=== PATIENT | male | born 1935 | race Hispanic/Latino ===

== ENCOUNTER 2016-11-24 15:46 | Emergency (ER) | payer MEDICARE, OTHER ==
[2016-11-24] MEDS ORDERED: Absorbable Gelatin Sponge Size 12-7 ONE ×2 (16:01→16:19)
[2016-11-24] MEDS ORDERED: Lidocaine 2% w Epi 1:100,000 Inj IJ ONE (16:23)
--- NOTE | 2016-11-24 17:22 | ED PDOC ---
HPI: Dental Pain/Injury Time Seen by Provider: 11/24/16 16:02 Chief Complaint (Nursing): Dental Pain Chief Complaint (Provider): Bleeding s/p Tooth Extraction History Per: Patient, Family (son) History/Exam Limitations: no limitations Onset/Duration Of Symptoms: Hrs (extracted earlier today) Current Symptoms Are (Timing): Still Present Severity: Moderate Additional Complaint(s): Tres Bello is an 81 year old male, with a past medical history inclusive of a "mitral valve problem" (compliant w/baby aspirin QD), who presents to the ED on 11/24/16, accompanied by his son, for the evaluation of moderate bleeding from the site of a tooth extraction (#19) that was performed earlier today by Dr. Rodríguez ([phone]; [place], [place]). Patient states that, though he had not experienced much bleeding immediately post procedure, it had started to bleed profusely after he had changed the overlaying gauze as per the directions of his dentist. Denies dizziness/lightheadedness or bleeding from elsewhere on body. Antibiotics have already been prescribed by dentist. PMD: none provided Past Medical History Reviewed: Historical Data, Nursing Documentation, Vital Signs Vital Signs: Last Vital Signs Temp 98.0 F 11/24/16 15:51 Pulse 84 11/24/16 15:51 Resp 20 11/24/16 15:51 BP 188/106 H 11/24/16 15:51 Pulse Ox 96 11/24/16 15:51 - Medical History PMH: Anxiety, Sleep Apnea Denies: Chronic Kidney Disease - Surgical History Surgical History: Endoscopy Other surgeries: colonoscopy - Family History Family History: States: Unknown Family Hx - Living Arrangements Living Arrangements: With Family - Social History Current smoker - smoking cessation education provided: No Alcohol: None Drugs: Denies - Home Medications Home Medications: Ambulatory Orders Medication Instructions Recorded Esomeprazole Magnesium [Nexium] 20 mg PO DAILY 09/13/16 - Allergies Allergies/Adverse Reactions: Allergies Allergy/AdvReac Type Severity Reaction Status Date / Time No Known Allergies Allergy Verified 11/24/16 15:51 Review of Systems ROS Statement: Except As Marked, All Systems Reviewed And Found Negative ENT: Positive for: Other (bleeding from site of recent tooth extraction) Cardiovascular: Negative for: Light Headedness Neurological: Negative for: Dizziness Physical Exam - Reviewed Nursing Documentation Reviewed: Yes Vital Signs Reviewed: Yes - Physical Exam Appears: Positive for: Non-toxic, No Acute Distress Head Exam: Positive for: ATRAUMATIC, NORMOCEPHALIC Skin: Positive for: Normal Color, Warm, Dry Eye Exam: Positive for: Normal appearance, PERRL ENT: Positive for: Other (empty socket noted at location of tooth #19 w/notable active bleeding) Neurologic/Psych: Positive for: Alert, Oriented (x3). Negative for: Motor/ Sensory Deficits - ECG O2 Sat by Pulse Oximetry: 96 (RA) Pulse Ox Interpretation: Normal - Critical Care Total Time (In Min): 45 Medical Decision Making Medical Decision Makin:02 Initial Impression: bleeding from site of tooth extraction Attempted to control bleeding with direct pressure and application of gelfoam dressing, unsuccessful. Will call patient's dentist for consultation. 16:12 Discussed case w/Dr. Rodríguez (DMD), who recommended OMFS consult. As this facility does not have OMFS staff automation control integrator, asked by this provider if patient could be sent back to their dental office for further treatment once bleeding was controlled. However, Dr. Rodríguez has expressed that he would rather the patient be treated within the ED secondary to risk of possible uncontrolled bleeding. 16:31 Discussed case w/Dr. Navarro (DMD, partner of Dr. Rodríguez), who has given the [place] [place]; ([phone]). Will call for further recommendations. 16:38 [place] [place] recommends local infiltration of 5cc Lidocaine 1% w/Epi laterally into extraction site and that at least one 3-0 plain gut/nonabsorbable suture be used to close wound site. Procedure performed by this MD provider, see procedure note for additional details. Patient tolerated procedure well with no immediate complications. Will observe for breakthrough bleeding. 17:45 Discussed case w/Dr. Navarro ([facility]), who has been updated as to patient's condition and recommendations of Dr. Nagy. 18:38 Upon provider reevaluation bleeding appears to be controlled. Patient's son has asked multiple times that patient be discharged home. Counseling provided regarding diagnosis and further wound care instructions, with patient being advised to follow up with his DMD tomorrow without fail. Also advised to take previously prescribed antibiotics as directed. There is agreement to discharge plan, return for acute worsening of symptoms. Scribe Attestation: Documented by Esther Broderick, acting as a scribe for Fariba Rhodes MD. Provider Scribe Attestation: All medical record entries made by the Scribe were at my direction and personally dictated by me. I have reviewed the chart and agree that the record accurately reflects my personal performance of the history, physical exam, medical decision making, and the department course for this patient. I have also personally directed, reviewed, and agree with the discharge instructions and disposition. Procedures - Time-Out Type of Procedure: Suture placement w/in site of tooth extraction Site of Procedure: Socket #19 Correct Patient (with visual ID + MR# on ID Band): Yes Correct Procedure: Yes Correct Site Marked: Yes Physician Name: Fariba Rhodes MD - Laceration/Wound Repair Socket #19 Wound Explored: clean Anesthesia: Lidocaine w/ Epi (local infiltration lateral to empty socket) Volume Anesthetic (ccs): 5 Wound Repaired With: Sutures Suture Size/Type: 4:0 (plain gut, x1), 3:0 (plain gut, x3) Wound Complexity: Intermediate Sterile Dressing Applied?: Yes Progress: Gelfoam dressing applied over socket s/p suture placement, topped with multiple layers of sterile gauze. Patient instructed to apply direct pressure by biting down with maxillary teeth. Patient tolerated procedure well with no immediate complications. Disposition - Clinical Impression Clinical Impression: Gingiva hemorrhage - Patient ED Disposition Is Patient to be Admitted: No Counseled Patient/Family Regarding: Diagnosis, Need For Followup - Disposition Disposition: Routine/Home Disposition Time: 18:38 Condition: STABLE Additional Instructions: FOLLOW-UP WITH DR. RODRÍGUEZ/LIZY TOMORROW FOR REEVALUATION WITHOUT FAIL. Instructions: Tooth Extraction (ED)
[2016-11-24 18:10] VITALS: BP 129/83; PULSE 78; RESP 19; TEMP 98
[2016-11-24] MEDS ORDERED: Lidocaine 2% w Epi 1:100,000 Inj IJ STA (18:12)
[2016-11-24 18:16] VITALS: O2SAT 96
== END 2016-11-24 18:46 | disposition home or self-care (01) ==
LOC: H.ER 15:46
DX: K06.8 Other specified disorders of gingiva and edentulous alveolar ridge (principal)